=== PATIENT | male | born 1960 | race Caucasian/White ===

== ENCOUNTER 2019-08-15 11:02 | Emergency (ER) | payer SELFPAY ==
[~2019-08-15] VITALS: Ht 154.9 cm; Wt 63.0 kg
[2019-08-15 11:20] VITALS: BP 139/73
[2019-08-15] MEDS ORDERED: IBUPROFEN 600MG TABLET PO ONE (11:45)
== END 2019-08-15 13:00 | disposition home or self-care (01) ==
LOC: ER 12:57
DX: H92.01 Otalgia, right ear (principal); Z90.49 Acquired absence of other specified parts of digestive tract; Z98.890 Other specified postprocedural states
CPT/HCPCS: 99282